=== PATIENT | male | born 1995 | race Caucasian/White ===

== ENCOUNTER 2024-06-16 22:03 | Emergency (ER) | payer SELFPAY ==
[2024-06-16 22:05] VITALS: BP 141/98; PULSE 106; RESP 18; TEMP 36.5; O2SAT 99; BMI 30.5
--- NOTE | 2024-06-16 23:20 | ED.RN ---
Pt's mother arrived and discussed with pt plan to take him home. Pt is agreeable with plan. Mother states she's a master level RN and feels comfortable staying with him and driving him home with plan to pickling grader pt's vehicle tomorrow. Pt denies SI and HI again and states he's feeling better with his mother present now.
== END 2024-06-16 23:30 | disposition left against medical advice (07) ==
LOC: ED 23:37
DX: F32.A Depression, unspecified (principal)

== ENCOUNTER 2024-12-14 23:40 | Emergency (ER) | payer OTHER, SELFPAY ==
[2024-12-14 23:42] VITALS: BP 125/80; PULSE 79; RESP 13; TEMP 37.1; O2SAT 98; BMI 30.9
--- NOTE | 2024-12-15 00:28 | EKG12_ITS ---
Test Reason : DYSRHYTHMIA Blood Pressure : */* mmHG Vent. Rate : 75 BPM Atrial Rate : 75 BPM P-R Int : 140 ms QRS Dur : 88 ms QT Int : 380 ms P-R-T Axes : 43 47 30 degrees QTcB Int : 424 ms Normal sinus rhythm Normal ECG Confirmed by JOSE ANTONIO STEINBERG, TYSHAWN ([id number]), assignment desk editor WELLINGTON CHAMORRO ([id number]) on 12/15/2024 1:34:45 PM Referred By: Confirmed By: TYSHAWN BRADY MD
[2024-12-15] MEDS: 0.9% Normal Saline (1000mL) 1,000 ML 999 ML IV (00:39)
[2024-12-15 00:44] LABS: Absolute Lymphocyte Count 2.96 X10^3/uL (0.83-4.51); Absolute Neutrophil Count 5.9 X10^3/uL (2.0-7.7); Basophil# 0.06 X10^3/uL; Basophil% 0.6 % (0-1); Hematocrit 42.3 % (40-54); Hemoglobin 14.8 g/dL (13.0-16.5); Lymphocyte # 2.96 X10^3/ul (0.83-4.51); Lymphocyte % 29.6 % (19-41); Mean Corpuscular Hgb 29.8 pg (27.0-32.0); Mean Corpuscular Volume 85.1 fL (80-94); Mean Platelet Vol. 11.2 fl (6.2-12.0); Monocyte# 0.97 X10^3/uL; Monocyte% 9.7 % (0-10); NRBC Flagged by Analyzer 0 % (0-5); Neutrophil # 5.86 X10^3/uL (2.7-7.7); Neutrophil % 58.6 % (47-70); Platelet Count 263 K/mm3 (150-450); RBC Distribution Width CV 12.2 % (11.6-14.6); RBC Distribution Width SD 37.4 fl (35.1-43.9); Red Blood Count 4.97 M/mm3 (4.6-6.2)
[2024-12-15 01:03] LABS: Anion Gap 10 (5-15); BUN 12 mg/dL (4-19); BUN/Creat Ratio 14.7 RATIO (10-20); Calcium,Total 9.4 mg/dL (7.6-11.0); Carbon Dioxide 22.1 mmol/L (21.0-32.0); Chloride 105 mmol/L (98-108); Creatinine, Serum 0.81 mg/dL (0.70-1.20); EST Glomerular Filtration Rate 123 (>60); Estimated Creatinine Clearance 167.49 ml/min (50-250); Glucose 101 mg/dL (70-99); Magnesium 2.2 mg/dL (1.5-2.2); Potassium 3.9 mmol/L (3.3-5.1); Sodium Level 137 mmol/L (133-145)
--- NOTE | 2024-12-15 01:38 | EX.ED.DYSGE1 ---
HPI History of Present Illness Chief Complaint: Syncope Informant: patient and family Narrative Narrative: Patient is a 28-year-old male with past medical history of schizophrenia. He states that his family doctor recently prescribed propranolol to help with symptom control. He states he took his first dose tonight and then went to work as he normally does. He states while at work he began to feel lightheaded and dizzy and folic he was going to pass out. He states he lowered himself to the ground and therefore did not strike his head. He denies any history of bleeding disorder or blood thinner use. He states EMS was called secondary to the near syncopal event and reportedly his heart rate was elevated upon their arrival. He denies any history of cardiac dysrhythmia. He states that he has concerned that it may be the propranolol which caused his event this evening and secondary to the episode of syncope presents for evaluation [facility] Medical History (Updated 12/15/24 @ 05:[address] Jamshid Dominique, ) FH: cholecystectomy ADHD Anxiety Autism Schizoaffective disorder Allergy/AdvReac Type Severity Reaction Status Date / Time Latex, Natural Rubber Allergy Rash Verified 12/14/24 23:44 nitrile Allergy Rash Verified 12/14/24 23:44 Family History no significant family his Surgical History no surgical history Social History Smoking Status: Never smoker ROS ROS ED Constitutional Constitutional ED: Denies chills or fever(s) Eyes Eyes: Denies change in vision ENT ENT ED: Denies sore throat Cardiovascular Cardiovascular: Reports palpitations, racing heartbeat and other Details: Positive syncope ; Denies chest pain Respiratory/Chest Respiratory/Chest: Denies cough or dyspnea Gastrointestinal Gastrointestinal: Denies abdominal pain, diarrhea, nausea or vomiting Musculoskeletal Musculoskeletal: Denies myalgias Integumentary Denies rash Neurologic Neurologic: Denies headache(s), paresthesias or weakness Hematologic/Lymphatic Hematologic/Lymphatic: Denies easy bleeding or easy bruising EXAM Physical Exam Const Vital Signs: 12/14/24 23:42 12/14/24 23:46 12/15/24 01:40 Temperature 98.7 F Temperature Source Oral Pulse Rate 79 58 L Respiratory Rate 13 17 Respiratory Effort Normal Respiratory Pattern Normal Blood Pressure 125/80 H 111/76 Blood Pressure Mean 95 87 Pulse Ox 98 100 Oxygen Delivery Method Room Air Room Air 12/15/24 01:46 Temperature 97.4 F L Temperature Source Pulse Rate 67 Respiratory Rate 13 Respiratory Effort Respiratory Pattern Blood Pressure 119/78 Blood Pressure Mean 91 Pulse Ox 100 Oxygen Delivery Method Positive well nourished and well developed General Appearance ED: well developed; Negative for pallor HEENT Reports dry mucous membranes HEENT Narrative: Normocephalic atraumatic No tongue or lip swelling no oral lesions no airway edema or compromise Mucous membranes are dry and tacky without secondary findings to suggest infection Mouth ED: Yes dry mucous membranes Mouth: dry mucous membranes Eyes PERRL and EOMs intact bilaterally General Eye ED: Negative for scleral icterus Neck supple Neck Narrative: No nuchal rigidity or meningeal signs Chest Wall palpation of chest normal Resp normal respiratory effort and clear to auscultation bilaterally Cardio regular rate and regular rhythm Rate: other Other Details: Heart is regular rate and rhythm without murmurs rubs or gallops Radial and carotid pulses are equal and symmetric GI normal to inspection, nondistended, normoactive bowel sounds, non-tender, non-distended and no masses GI Narrative: No voluntary guarding or rigidity or pulsatile mass Auscultation: normoactive bowel sounds Palpation: soft Extremity normal to inspection Extremity Narrative: No asymmetric edema no pitting edema negative Homans' sign bilaterally Neuro oriented x3, CN's II-XII intact bilaterally and no sensory deficits noted Neuro Narrative: GCS of 15 Cranial nerves II through XII are grossly intact without focal neurologic deficit No pronator drift no dysmetria no truncal ataxia NIH stroke scale score of 0 Sensorium / Orientation: alert Motor Exam: strength 5/5 throughout Psych Psych Narrative: Patient has a flat affect Skin no rashes or lesions noted General Skin Exam: Negative for jaundice or pallor MDM MDM MDM Narrative Medical decision making narrative: Patient arrived to the ER awake and alert with normal neurologic exam and stable vitals. He reported a syncopal event at work and does have a new medication and propranolol which in theory could have caused his symptoms. In order to rule out cardiac dysrhythmia or acute ACS an EKG was obtained and he was placed on the meter engineer. EKG showed sinus rhythm without ischemic changes or ectopy. While on the monitor he had no bouts of an abnormal cardiac rhythm. In order to assess for acute kidney injury acute blood loss anemia or clinically significant electrolyte abnormality basic blood work was obtained. Labs revealed no clinically significant findings. Therefore at this time overall workup is negative the patient's only had 1 episode of syncope and therefore do not feel there is need for further observation in the ER as vitals are stable there is been no cardiac dysrhythmia noted and there is no need for replacement of electrolytes or blood volume. Patient will be advised to hold his propranolol as it is his only new medication and potentially could have led to a drop in his blood pressure or heart rate leading to his syncopal event but as overall workup is negative patient's had no further bouts of syncope and vitals are stable he is otherwise safe for discharge History & Record Review Discussion w/independent historian: Patient and Family Lab Data Attestation: I reviewed the patient's lab results. Labs: Laboratory Results - last 24 hr 12/15/24 00:38 WBC 10.0 RBC 4.97 Hgb 14.8 Hct 42.3 MCV 85.1 MCH 29.8 MCHC 35.0 RDW Std Deviation 37.4 RDW Coeff of [place] 12.2 Plt Count 263 MPV 11.2 Immature Gran % (Auto) 0.500 Neut % (Auto) 58.6 Lymph % (Auto) 29.6 [place] % (Auto) 9.7 Eos % (Auto) 1.0 Baso % (Auto) 0.6 Absolute Neuts (auto) 5.9 Absolute Lymphs (auto) 2.96 Nucleated RBC % 0 Sodium 137 Potassium 3.9 Chloride 105 Carbon Dioxide 22.1 Anion Gap 10 BUN 12 Creatinine 0.81 Estim Creat Clear Calc 167.49 Est GFR (MDRD) Non-Af 123 BUN/Creatinine Ratio 14.7 Glucose 101 H Calcium 9.4 Magnesium 2.2 Discharge Plan Triage Chief Complaint: Syncope ED Provider: Jamshid Dominique Dx/Rx/DC Orders Clinical Impression: Syncope, Schizophrenia Instructions: What Is Syncope, Dizziness Fainting Causes Stand Alone Forms: ED Work / School Excuse Primary Care Provider: Care Physician,No Primary Referrals: Care Physician,No Primary [Primary Care Provider] - Activity Restrictions/Additional Instructions: Your workup did not reveal any obvious cause for your syncopal event. Please hold off on taking the propranolol as this is only new medication which potentially could have caused your symptoms. Please contact your family doctor's office today to discuss continuing the propranolol in the future. Return to the ER should you have any further concerns Print Language: Occitan Disposition Disposition: Home, Self Care Discharge Date/Time: 12/15/24 01:50
[2024-12-15 01:40] VITALS: BP 111/76; PULSE 58; RESP 17; O2SAT 100
[2024-12-15 01:46] VITALS: BP 119/78; PULSE 67; RESP 13; TEMP 36.3; O2SAT 100
== END 2024-12-15 01:50 | disposition home or self-care (01) ==
PROVIDERS: Emergency Provider Emergency Medicine; Visit Provider Emergency Medicine
DX: R55 Syncope and collapse (principal); F20.9 Schizophrenia, unspecified; Z90.49 Acquired absence of other specified parts of digestive tract
CPT/HCPCS: 80048; 83735; 85025; 93005; 96360; 99285; A4216